=== PATIENT | female | born 1980 | race Caucasian/White ===

== ENCOUNTER 2020-11-05 05:20 | Inpatient (IN) | payer OTHER ==
[2020-11-05] MEDS ORDERED: IBUPROFEN 600 MG TABLET (FP) PO PRN (06:48)
[2020-11-05] MEDS ORDERED: METHYLERGONOVINE MALEATE 0.2 MG/1 ML AMP IM PRN (06:48)
[2020-11-05] MEDS ORDERED: BENZOCAINE 28 GM HEMORRHOIDAL OINTMENT RC PRN (06:48)
[2020-11-05] MEDS ORDERED: BENZOCAINE 20% 57 GM BOTTLE TP PRN (06:48)
[2020-11-05] MEDS ORDERED: WITCH HAZEL 50% (TUCKS) 40 PAD/JAR PAD TP PRN (06:48)
[2020-11-05] MEDS ORDERED: BISACODYL 10 MG SUPP.RECT PR PRN (06:48)
[2020-11-05] MEDS: ACETAMINOPHEN 325 MG TABLET (FP) PO PRN ×3 (06:50→19:40)
[2020-11-05] MEDS ORDERED: OXYTOCIN 20 UNITS in 0.9% NS 20 UNIT/1,000 ML INFUS.BAG IV SCH (07:00)
[2020-11-05] MEDS ORDERED: ELECTROLYTE-148 SOLN 1,000 ML IV SCH (07:00)
[2020-11-05 07:58] VITALS: BMI 30.9
[2020-11-05] MEDS ORDERED: PHYTONADIONE NEONATAL 1 MG/0.5 ML AMP IM ONE (08:25)
[2020-11-05] MEDS ORDERED: ERYTHROMYCIN 0.5% OPHTHALMIC OINTMENT 3.5 GM TUBE OU ONE (08:25)
[2020-11-05 08:29] LABS: CORD BASE EXCESS -14.5 mmol/L (0-2); CORD HCO3 15.9 mmHg (20-29); CORD PCO2 53.6 mmHg (30-78); CORD pH 7.089 (7.14-7.44)
[2020-11-05 08:41] LABS: CORD BASE EXCESS -9.3 mmol/L (0-2); CORD HCO3 18.4 mmHg (20-29); CORD PCO2 46.1 mmHg (30-78); CORD pH 7.218 (7.14-7.44)
[2020-11-05 08:50] LABS: INR 1.08 (0.83-1.09); PROTHROMBIN TIME (PATIENT) 13.2 SEC (9.7-13.0)
[2020-11-05 08:51] LABS: BASO % 0.1 % (0-2.0); EOS % 0.4 % (0-4.5); HEMATOCRIT 29.9 % (32.4-45.2); LYMPH % 7.6 % (8-40); MCH 27.6 pg (25.7-33.7); MCHC 33.4 g/dl (32.0-36.0); MEAN CELL VOLUME 82.8 fl (80-96); MEAN PLT VOLUME 10.5 fl (7.5-11.1); MONO % 6.2 % (3.8-10.2); NEUT % 85.7 % (42.8-82.8); PLATELET COUNT 188 K/MM3 (134-434); RDW 14.1 % (11.6-15.6); WHITE BLOOD COUNT 12.8 K/mm3 (4.0-10.0)
[2020-11-05 08:53] LABS: ACTIVATED PTT 25.9 SECONDS (25.2-36.5)
[2020-11-05 08:54] LABS: POTASSIUM 3.7 mmol/L (3.5-5.1)
[2020-11-05 08:55] LABS: CALCIUM 7.8 mg/dL (8.5-10.1)
[2020-11-05 08:56] LABS: BLOOD UREA NITROGEN 9.1 mg/dL (7-18)
[2020-11-05 08:59] LABS: CREATININE 0.6 mg/dL (0.55-1.3)
[2020-11-06 09:38] LABS: BASO % 0.4 % (0-2.0); EOS % 2.1 % (0-4.5); HEMATOCRIT 26.6 % (32.4-45.2); LYMPH % 18.7 % (8-40); MCHC 33.8 g/dl (32.0-36.0); MEAN CELL VOLUME 82.9 fl (80-96); MEAN PLT VOLUME 9.8 fl (7.5-11.1); MONO % 5.8 % (3.8-10.2); PLATELET COUNT 187 K/MM3 (134-434); RDW 14.3 % (11.6-15.6); WHITE BLOOD COUNT 7.8 K/mm3 (4.0-10.0)
[2020-11-06 12:37] VITALS: BP 116/72; PULSE 97; TEMP 98.5
== END 2020-11-06 15:45 | disposition home or self-care (01) | DRG 560 ==
LOC: JLDR 05:20 → J3W 09:17
PROVIDERS: ADMIT Obstetrics & Gynecology; ATTEND Obstetrics & Gynecology
PROC: 10E0XZZ Delivery of Products of Conception, External Approach (ICD-10-PCS; principal; 2020-11-05)
DX: O34.219 Maternal care for unspecified type scar from previous cesarean delivery (principal); O99.824 Streptococcus B carrier state complicating childbirth; Z3A.39 39 weeks gestation of pregnancy; Z37.0 Single live birth
CPT/HCPCS: 36415; 36600; 59409; 80048; 82803; 85025; 85610; 85730; 86780; 86850; 86900; 86901; C9803; U0003